=== PATIENT | female | born 1975 | race African-American/Black ===

== ENCOUNTER 2018-03-26 22:42 | Emergency (ER) | payer OTHER ==
[~2018-03-26] VITALS: Ht 170.2 cm; Wt 83.9 kg
[~2018-03-26 22:42] MED LIST: ALPR0.5T6 PO; CYCL10TA2 PO; DOCU-109 PO; GLYB2.5T2 PO; IBUP-1060 PO; LINA290C PO; OXYC-323 PO; PREN1TAB58 PO; VENTOLIN HFA18 GM INH; ZOLP10TA PO
--- NOTE | 2018-03-26 23:29 | PHYS DOC ---
Past Medical History Past Medical History: Asthma Additional Past Medical Histor: Miscarriage, insomnia Past Surgical History: No Surgical History, Alcohol Use: None Drug Use: None Adult General Chief Complaint Chief Complaint: ABDOMINAL PAIN HPI HPI Patient is a 43 year old female who presents with pelvic pain and bleeding. Patient has had pelvic pain for the past month since having an IUD placed. There is some has been getting worse over that period of time. Patient had more pain this evening and then the IUD "fell out" which did improve the pain. Patient reports that she is still passing clots. Patient denies any other vaginal discharge. Did report some dysuria. Denies any rectal pain or bleeding. Denies any fevers.[] Review of Systems Review of Systems Constitutional: Denies fever or chills [] Eyes: Denies change in visual acuity, redness, or eye pain [] HENT: Denies nasal congestion or sore throat [] Respiratory: Denies cough or shortness of breath [] Cardiovascular: No chest pain or palpitations[] GI: Denies abdominal pain, nausea, vomiting, bloody stools or diarrhea [] : Denies hematuria, see history of present illness [] Musculoskeletal: Denies back pain or joint pain [] Integument: Denies rash or skin lesions [] Neurologic: Denies headache, focal weakness or sensory changes [] Endocrine: Denies polyuria or polydipsia [] All other systems were reviewed and found to be within normal limits, except as documented in this note. Current Medications Current Medications Current Medications Medications (Trade) Dose Ordered Sig/Viri Start Time Stop Time Status Last Admin Dose Admin Info (CONTRAST GIVEN -- Rx MONITORING) 1 each PRN DAILY PRN 03/26/18 23:30 03/28/18 23:29 Iohexol (Omnipaque 300 Mg/ml) 75 ml 1X ONCE 03/26/18 23:45 03/26/18 23:46 DC 03/27/18 00:12 75 ML Ketorolac Tromethamine (Toradol 15mg Vial) 15 mg 1X ONCE 03/26/18 23:30 03/26/18 23:31 DC 03/26/18 23:30 15 MG Allergies Allergies Allergies Coded Allergies Type Severity Reaction Last Updated Verified hydrocodone Allergy Intermediate HALLUCINATIONS 03/26/18 Yes Physical Exam Physical Exam Constitutional: Well developed, well nourished, no acute distress, non-toxic appearance. [] HENT: Normocephalic, atraumatic, bilateral external ears normal, oropharynx moist, no oral exudates, nose normal. [] Eyes: PERRLA, EOMI, conjunctiva normal, no discharge. [] Neck: Normal range of motion, no tenderness, supple, no stridor. [] Cardiovascular:Heart rate regular rhythm, no murmur [] Lungs & Thorax: Bilateral breath sounds clear to auscultation [] Abdomen: Bowel sounds normal, soft, lower abdominal tenderness, no masses, no pulsatile masses. No rebound, guarding, nor rigidity : EGSUB: NORMAL V/V: Small amount of blood in the vault cervix: Parous os, mild bleeding from the os, no cervical motion tenderness. No laceration noted[] Skin: Warm, dry, no erythema, no rash. [] Back: No tenderness, no CVA tenderness. [] Extremities: No tenderness, no cyanosis, no clubbing, ROM intact, no edema. [] Neurologic: Alert and oriented X 3, normal motor function, normal sensory function, no focal deficits noted. [] Psychologic: Affect normal, judgement normal, mood normal. [] Current Patient Data Vital Signs Vital Signs Date Time Temp Pulse Resp B/P (MAP) Pulse Ox O2 Delivery O2 Flow Rate FiO2 03/27/18 00:39 78 16 134/78 (96) 100 Room Air 03/26/18 22:56 98.5 98.5 Lab Values Laboratory Tests Test 03/26/18 23:09 03/26/18 23:15 White Blood Count 6.2 x10^3/uL (4.0-11.0) Red Blood Count 4.11 x10^6/uL (3.50-5.40) Hemoglobin 12.9 g/dL (12.0-15.5) Hematocrit 37.6 % (36.0-47.0) Mean Corpuscular Volume 91 fL (79-100) Mean Corpuscular Hemoglobin 31 pg (25-35) Mean Corpuscular Hemoglobin Concent 34 g/dL (31-37) Red Cell Distribution Width 13.6 % (11.5-14.5) Platelet Count 207 x10^3/uL (140-400) Neutrophils (%) (Auto) 48 % (31-73) Lymphocytes (%) (Auto) 42 % (24-48) Monocytes (%) (Auto) 9 % (0-9) Eosinophils (%) (Auto) 1 % (0-3) Basophils (%) (Auto) 1 % (0-3) Neutrophils # (Auto) 3.0 x10^3uL (1.8-7.7) Lymphocytes # (Auto) 2.6 x10^3/uL (1.0-4.8) Monocytes # (Auto) 0.6 x10^3/uL (0.0-1.1) Eosinophils # (Auto) 0.1 x10^3/uL (0.0-0.7) Basophils # (Auto) 0.1 x10^3/uL (0.0-0.2) Sodium Level 140 mmol/L (136-145) Potassium Level 4.5 mmol/L (3.5-5.1) Chloride Level 104 mmol/L (98-107) Carbon Dioxide Level 29 mmol/L (21-32) Anion Gap 7 (6-14) Blood Urea Nitrogen 10 mg/dL (7-20) Creatinine 0.8 mg/dL (0.6-1.0) Estimated GFR (Cockcroft-Gault) 95.2 BUN/Creatinine Ratio 13 (6-20) Glucose Level 101 mg/dL (70-99) H Calcium Level 8.7 mg/dL (8.5-10.1) Total Bilirubin 0.2 mg/dL (0.2-1.0) Aspartate Amino Transferase (AST) 19 U/L (15-37) Alanine Aminotransferase (ALT) 17 U/L (14-59) Alkaline Phosphatase 47 U/L (46-116) Total Protein 7.7 g/dL (6.4-8.2) Albumin 3.6 g/dL (3.4-5.0) Albumin/Globulin Ratio 0.9 (1.0-1.7) L Serum Test, Qualitative Negative (NEG) Urine Collection Type Unknown Urine Color Yellow Urine Clarity Clear Urine pH 7.5 Urine Specific [place] 1.010 Urine Protein Negative mg/dL (NEG-TRACE) Urine Glucose (UA) Negative mg/dL (NEG) Urine Ketones (Stick) Negative mg/dL (NEG) Urine Blood Large (NEG) Urine Nitrite Negative (NEG) Urine Bilirubin Negative (NEG) Urine Urobilinogen Dipstick 1.0 mg/dL (0.2 mg/dL) Urine Leukocyte Esterase Negative (NEG) Urine RBC Tntc /HPF (0-2) Urine WBC 1-4 /HPF (0-4) Urine Squamous Epithelial Cells Few /LPF Urine Bacteria 0 /HPF (0-FEW) Laboratory Tests 03/26/18 23:09 Laboratory Tests 03/26/18 23:09 Microbiology 03/27/18 Wet Prep - Final, Complete EKG EKG [] Radiology/Procedures Radiology/Procedures CT scan the abdomen and pelvis shows no IUD visualized. Uterus and adnexa are otherwise normal in appearance. Moderate amount of stool within the colon. Appendix is normal.[] Course & Med Decision Making Course & Med Decision Making Pertinent Labs and Imaging studies reviewed. (See chart for details) ED course: Patient arrived, was placed in bed, and tolerated exam well. Pelvic exam was performed with recycling or rubbish collector present. Patient was transported to and from CT without any complications. After the return of laboratory and CT findings, patient was reengaged with this information, all questions were answered. Medical decision making: There is no evidence of perforation or obstruction. No evidence of severe hemorrhage. No evidence of .[] Dragon Disclaimer Dragon Disclaimer This electronic medical record was generated, in whole or in part, using a voice recognition dictation system. Departure Departure Impression: Primary Impression: Complication of intrauterine device Disposition: 01 HOME, SELF-CARE Condition: GOOD Referrals: HANS VERDUZCO MD (PCP) Follow-up in 2 days Patient Instructions: Intrauterine Device Insertion, Care After Additional Instructions: Follow-up with your primary care physician in 2 days. Return to the ER if worsening pain, soaking more than a pad an hour for 3 consecutive hours, or any other concerns. Scripts Meloxicam (MELOXICAM) 7.5 Mg Tablet 7.5 MG PO DAILY, #20 TAB Prov: JAKE CURIEL DO 03/27/18 Problem Qualifiers Primary Impression: Complication of intrauterine device Device complication type: unspecified Encounter type: initial encounter Qualified Codes: T83.9XXA - Unspecified complication of genitourinary prosthetic device, implant and graft, initial encounter JAKE CURIEL DO Mar 26, 2018 23:29
[2018-03-26] MEDS ORDERED: KETOROLAC 15 MG/ML VIAL. IV ONE (23:30)
[2018-03-26] MEDS ORDERED: CONTRAST GIVEN. MC PRN (23:30)
[2018-03-26 23:33] LABS: BASO # 0.1 x10^3/uL (0.0-0.2); BASO % 1 % (0-3); EOS # 0.1 x10^3/uL (0.0-0.7); EOS % 1 % (0-3); HEMATOCRIT 37.6 % (36.0-47.0); HEMOGLOBIN 12.9 g/dL (12.0-15.5); LYMPH # 2.6 x10^3/uL (1.0-4.8); LYMPH % 42 % (24-48); MEAN CORPUSCULAR HEMOGLOBIN 31 pg (25-35); MEAN CORPUSCULAR HGB CONC 34 g/dL (31-37); MEAN CORPUSCULAR VOLUME 91 fL (79-100); MONO # 0.6 x10^3/uL (0.0-1.1); MONO % 9 % (0-9); NEUT % 48 % (31-73); PLATELET COUNT 207 x10^3/uL (140-400); RED BLOOD COUNT 4.11 x10^6/uL (3.50-5.40); RED CELL DISTRIBUTION WIDTH 13.6 % (11.5-14.5); WHITE BLOOD COUNT 6.2 x10^3/uL (4.0-11.0)
[2018-03-26 23:35] LABS: BILIRUBIN,URINE NEGATIVE (NEG); CLARITY,URINE CLEAR; COLOR,URINE YELLOW; NITRITE,URINE NEGATIVE (NEG); PH,URINE 7.5; PROTEIN,URINE NEGATIVE (NEG-TRACE)
[2018-03-26 23:41] LABS: CALCIUM 8.7 mg/dL (8.5-10.1); CREATININE 0.8 mg/dL (0.6-1.0); GFR 95.2; POTASSIUM 4.5 mmol/L (3.5-5.1)
[2018-03-26 23:43] LABS: BACTERIA,URINE 0 /HPF (0-FEW); RBC,URINE TNTC /HPF (0-2); SQUAMOUS EPITHELIAL CELL,UR FEW /LPF
[2018-03-26] MEDS ORDERED: IOHEXOL 300 MG/ML 100ML VIAL. IV ONE (23:45)
[2018-03-26 23:47] LABS: ALBUMIN 3.6 g/dL (3.4-5.0); ALBUMIN/GLOBULIN RATIO 0.9 (1.0-1.7); TOTAL BILIRUBIN 0.2 mg/dL (0.2-1.0); TOTAL PROTEIN 7.7 g/dL (6.4-8.2)
[2018-03-26 23:55] LABS: PREG TEST PT QUAL NEGATIVE (NEG)
[2018-03-27 00:39] VITALS: BP 134/78
--- NOTE | 2018-03-27 00:42 | RAD ---
PQRS Compliance Statement: One or more of the following individualized dose reduction techniques were utilized for this examination: 1. Automated exposure control 2. Adjustment of the mA and/or kV according to patient size 3. Use of iterative reconstruction technique CT abdomen/pelvis with contrast 03/27/2018 12:03 AM INDICATION: Lower abdominal pain with vaginal bleeding. Recent IUD placement. COMPARISON: None available TECHNIQUE: Multiple axial CT images of the abdomen and pelvis were obtained after the intravenous administration of 75 mL Omnipaque 300. Coronal and sagittal reformats are provided. FINDINGS: There is mild elevation of left hemidiaphragm. Lung bases are clear. Heart size is within normal limits. 7 mm hypoattenuating lesion in the right hepatic dome is too small to characterize, however statistically favor to represent a simple cyst or hemangioma. Spleen is nonenlarged. Adrenal glands are normal in appearance. No peripancreatic inflammation is identified. Gallbladder is present without radiopaque gallstones. The abdominal aorta is normal in course and caliber. There are no pathologically enlarged lymph nodes in the abdomen and pelvis. There is no abdominal free fluid. There is no free intraperitoneal air. There is mild diastasis of the ventral abdominal musculature. The kidneys enhance symmetrically. There is no suspicious renal mass. There is no hydronephrosis. There are no suspected calculi within the kidneys, ureters or urinary bladder. Moderate amount of stool is noted within the rectum. Small and large bowel are normal in caliber. There is no evidence for bowel obstruction. There are no pericolonic inflammatory changes. A normal, nondilated appendix is visualized without adjacent inflammatory changes. Uterus and adnexa are normal in appearance. No IUD is visualized. Urinary bladder is within normal limits given degree of distention. No suspicious osseous abnormality. IMPRESSION: 1. No IUD is visualized. Uterus and adnexa are otherwise normal in appearance. 2. Moderate amount of stool within the colon. Appendix is normal. Electronically signed by: Smiley Fletcher MD (03/27/2018 12:38 AM) [facility]
[2018-03-27] MEDS ORDERED: MELO7.5T29 PO (00:49)
[2018-03-31 12:12] LABS: GC PROBE Negative (Negative)
== END 2018-03-27 01:03 | disposition home or self-care (01) ==
LOC: ER 22:42
DX: T83.89XA Other specified complication of genitourinary prosthetic devices, implants and grafts, initial encounter (principal); N93.9 Abnormal uterine and vaginal bleeding, unspecified; R10.2 Pelvic and perineal pain; J45.909 Unspecified asthma, uncomplicated; Z88.5 Allergy status to narcotic agent; Y82.8 Other medical devices associated with adverse incidents; Y92.89 Other specified places as the place of occurrence of the external cause
CPT/HCPCS: 74177; 80053; 81001; 84703; 85025; 96374; 99284; J1885; Q0111; Q9967; 36415; 87491; 87591